=== PATIENT | male | born 1980 | race Caucasian/White ===

== ENCOUNTER 2017-04-07 05:51 | Emergency (ER) | payer SELFPAY ==
[~2017-04-07] VITALS: Ht 175.3 cm; Wt 84.7 kg
[2017-04-07] MEDS ORDERED: SODIUM CHLORIDE FLUSH 10ML SYR IVF ONE (07:00)
[2017-04-07] MEDS ORDERED: SODIUM CHLORIDE 0.9% 1,000ML IVBOLUS ONE (07:00)
[2017-04-07] MEDS ORDERED: ONDANSETRON 2MG/ML, 2ML IVPush ONE (07:00)
[2017-04-07 07:09] LABS: BLOOD UREA NITROGEN 14 mg/dL (7-18)
[2017-04-07 07:11] LABS: ASPARTATE AMINO TRANSFERASE 71 U/L (15-37)
[2017-04-07 07:18] VITALS: BP 157/105
== END 2017-04-07 09:02 | disposition home or self-care (01) ==
LOC: ED 06:12
DX: S39.012A Strain of muscle, fascia and tendon of lower back, initial encounter (principal); X58.XXXA Exposure to other specified factors, initial encounter; Y93.89 Activity, other specified; Y99.8 Other external cause status; Y92.89 Other specified places as the place of occurrence of the external cause
CPT/HCPCS: 36415; 80053; 81001; 83690; 85025; 85610; 96360; 96361; 99285; J7030

== ENCOUNTER 2017-05-22 14:20 | Emergency (ER) | payer SELFPAY ==
[~2017-05-22] VITALS: Ht 175.3 cm; Wt 81.1 kg
[2017-05-22 14:22] VITALS: BP 129/90
== END 2017-05-22 15:40 | disposition home or self-care (01) ==
LOC: ED 15:25
DX: L02.211 Cutaneous abscess of abdominal wall (principal)
CPT/HCPCS: 10060

== ENCOUNTER 2017-12-07 12:28 | Emergency (ER) | payer OTHER ==
[~2017-12-07] VITALS: Ht 177.8 cm; Wt 84.1 kg
[2017-12-07] MEDS ORDERED: SODIUM CHLORIDE FLUSH 10ML SYR IVF ONE (13:00)
[2017-12-07] MEDS ORDERED: ONDANSETRON 2MG/ML, 2ML IVPush ONE (13:00)
[2017-12-07] MEDS ORDERED: SODIUM CHLORIDE 0.9% 1,000ML IVBOLUS ONE (13:00)
[2017-12-07] MEDS ORDERED: OXYcodone/APAP 5/325MG TABLET PO ONE (14:00)
[2017-12-07] MEDS ORDERED: FAMOTIDINE 20 MG/2 ML IVPush ONE (14:00)
[2017-12-07] MEDS ORDERED: ONDANSETRON 2MG/ML, 2ML ONE (15:47)
[2017-12-07] MEDS ORDERED: OXYcodone/APAP 5/325MG TABLET ONE (15:47)
[2017-12-07 16:22] VITALS: BP 134/90
== END 2017-12-07 16:24 | disposition home or self-care (01) ==
LOC: ED 16:13
DX: J32.0 Chronic maxillary sinusitis (principal); K02.9 Dental caries, unspecified; F10.20 Alcohol dependence, uncomplicated; F17.200 Nicotine dependence, unspecified, uncomplicated
CPT/HCPCS: 96374; 96375; 99284; J2405; J7030; S0028

== ENCOUNTER 2018-06-09 06:11 | Emergency (ER) | payer SELFPAY ==
[~2018-06-09] VITALS: Ht 175.3 cm; Wt 75.0 kg
[2018-06-09 06:16] VITALS: BP 138/95
== END 2018-06-09 10:12 | disposition home or self-care (01) ==
LOC: ED 07:10
DX: S02.2XXA Fracture of nasal bones, initial encounter for closed fracture (principal); S09.90XA Unspecified injury of head, initial encounter; F10.120 Alcohol abuse with intoxication, uncomplicated; Y09 Assault by unspecified means; Y93.89 Activity, other specified; Y92.89 Other specified places as the place of occurrence of the external cause; Y99.8 Other external cause status
CPT/HCPCS: 70450; 70486; 99284

== ENCOUNTER 2018-08-06 18:14 | Emergency (ER) | payer OTHER ==
[~2018-08-06] VITALS: Ht 175.3 cm; Wt 84.0 kg
[2018-08-06 19:03] LABS: BASOPHILS # (AUTO) 0.02 x10^3/uL (0-0.1); BASOPHILS % (AUTO) 0 % (0-1); EOSINOPHILS # (AUTO) 0.19 x10^3/uL (0-0.4); EOSINOPHILS % (AUTO) 2 % (1-7); LYMPHOCYTES # (AUTO) 1.58 x10^3/uL (1-3.4); LYMPHOCYTES % (AUTO) 17 % (22-44); MD NO; MEAN CORPUSCULAR HEMOGLOBIN 33.1 pg (27.5-34.5); MEAN CORPUSCULAR HGB CONC 34.7 g/dL (33.2-36.2); MEAN CORPUSCULAR VOLUME 95.3 fL (81-97); MEAN PLATELET VOLUME 8.5 fL (7.4-10.4); MONOCYTES # (AUTO) 0.56 x10^3/uL (0.2-0.8); MONOCYTES % (AUTO) 6 % (2-9); NEUTROPHILS # (AUTO) 7.21 x10^3/uL (1.8-6.8); NEUTROPHILS % (AUTO) 76 % (42-75); PLATELET COUNT 192 x10^3/uL (130-400); RED BLOOD COUNT 5.17 x10^6/uL (4.38-5.82); RED CELL DISTRIBUTION WIDTH 12.6 % (9.4-14.8)
[2018-08-06 19:07] LABS: ALANINE AMINOTRANSFERASE 40 U/L (12-78); ANION GAP 6 mmol/L (5-15); CALCIUM 9.2 mg/dL (8.5-10.1); CHLORIDE 109 mmol/L (98-107); CREATININE 0.91 mg/dL (0.7-1.3)
[2018-08-06 19:08] LABS: ALKALINE PHOSPHATASE 96 U/L (45-117); BILIRUBIN,TOTAL 1.1 mg/dL (0.2-1.0)
[2018-08-06 21:04] LABS: MICROSCOPIC NOT IND
[2018-08-06 21:14] LABS: CULTURE INDICATED? NO
[2018-08-06 22:39] VITALS: BP 134/95
== END 2018-08-06 22:47 | disposition home or self-care (01) ==
LOC: ED 22:41
DX: S76.811A Strain of other specified muscles, fascia and tendons at thigh level, right thigh, initial encounter (principal); F17.200 Nicotine dependence, unspecified, uncomplicated; X58.XXXA Exposure to other specified factors, initial encounter; Y93.89 Activity, other specified; Y92.89 Other specified places as the place of occurrence of the external cause; Y99.8 Other external cause status
CPT/HCPCS: 36415; 76870; 80053; 81003; 85025; 87491; 87591; 93975; 99285

== ENCOUNTER 2018-11-14 14:12 | Emergency (ER) | payer SELFPAY ==
[~2018-11-14] VITALS: Ht 175.3 cm; Wt 79.6 kg
[2018-11-14 14:17] VITALS: BP 153/86
[2018-11-14] MEDS ORDERED: DIPH,PERTUSS(ACELL),TET VAC/PF 0.5 ML IM-VACC ONE ×2 (14:30→15:02)
== END 2018-11-14 15:53 | disposition home or self-care (01) ==
LOC: ED 15:16
DX: S50.311A Abrasion of right elbow, initial encounter (principal); L03.114 Cellulitis of left upper limb; F17.200 Nicotine dependence, unspecified, uncomplicated; W01.0XXA Fall on same level from slipping, tripping and stumbling without subsequent striking against object, initial encounter; Y93.89 Activity, other specified; Y92.009 Unspecified place in unspecified non-institutional (private) residence as the place of occurrence of the external cause; Y99.8 Other external cause status
CPT/HCPCS: 90471; 90715; 99283

== ENCOUNTER 2019-10-30 18:22 | Emergency (ER) | payer SELFPAY ==
[~2019-10-30] VITALS: Ht 175.3 cm; Wt 89.1 kg
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
--- NOTE | 2019-10-30 19:06 | NUR ---
PT TAKEN TO CT
--- NOTE | 2019-10-30 19:38 | NUR ---
ALL RESULTS ARE BACK AT THIS TIME. CHART UP FOR RECHECK.
[2019-10-30 19:40] VITALS: BP 134/82
--- NOTE | 2019-10-30 19:42 | NUR ---
PT RESTING COMFORTABLY ON [place] WATCHING TV.
--- NOTE | 2019-10-30 20:05 | NUR ---
MD AT BEDSIDE TO UPDATE PT ON POC.
== END 2019-10-30 20:21 | disposition home or self-care (01) ==
LOC: ED 19:12
DX: S06.0X1A Concussion with loss of consciousness of 30 minutes or less, initial encounter (principal); J32.9 Chronic sinusitis, unspecified; G44.209 Tension-type headache, unspecified, not intractable; W18.30XA Fall on same level, unspecified, initial encounter; Y93.89 Activity, other specified; Y92.89 Other specified places as the place of occurrence of the external cause; Y99.8 Other external cause status
CPT/HCPCS: 70450; 99284

== ENCOUNTER 2019-12-11 12:26 | Emergency (ER) | payer SELFPAY ==
[~2019-12-11] VITALS: Ht 175.3 cm; Wt 91.9 kg
[2019-12-11 12:33] VITALS: BP 127/83
[2019-12-11] MEDS ORDERED: DEXAMETHASONE 4 MG/ML, 1ML ONE (13:13)
[2019-12-11] MEDS ORDERED: DEXAMETHASONE 4 MG/ML, 1ML PO ONE (13:30)
== END 2019-12-11 13:55 | disposition home or self-care (01) ==
LOC: ED 13:49
DX: J32.0 Chronic maxillary sinusitis (principal)
CPT/HCPCS: 99283; J1100

== ENCOUNTER 2021-05-26 17:54 | Emergency (ER) | payer SELFPAY ==
[~2021-05-26] VITALS: Ht 175.3 cm; Wt 92.2 kg
[2021-05-26 17:57] VITALS: BP 161/95
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
--- NOTE | 2021-05-26 18:17 | NUR ---
REPORT GIVEN TO MOOK HERNANDEZ FOR BREAK
--- NOTE | 2021-05-26 19:09 | NUR ---
PT RESTING COMFORTABLY AND WAITING ON CT SCAN TO BE READY TO CONDUCT TEST.
--- NOTE | 2021-05-26 20:39 | NUR ---
F/U AND D/C INSTRUCTIONS WITH PRESCRIPTIONS GIVEN TO PT AND HE V/U. PT AMBULATED TO D/C DESK.
== END 2021-05-26 20:41 | disposition home or self-care (01) ==
LOC: ED 18:24
DX: S00.12XA Contusion of left eyelid and periocular area, initial encounter (principal); S00.11XA Contusion of right eyelid and periocular area, initial encounter; J32.0 Chronic maxillary sinusitis; F17.200 Nicotine dependence, unspecified, uncomplicated; Y08.89XA Assault by other specified means, initial encounter; Y93.89 Activity, other specified; Y92.410 Unspecified street and highway as the place of occurrence of the external cause; Y99.8 Other external cause status
CPT/HCPCS: 70486; 99284